=== PATIENT | female | born 1965 ===

== ENCOUNTER → 2018-11-08 21:05 | Outpatient (REF) | payer OTHER, SELFPAY ==
[2018-11-08 21:43] LABS: Alanine Aminotransferase 20 IU/L (9-52); Albumin 4.8 g/dL (3.5-5.0); Albumin Globulin Ratio 1.5 (1.0-2.8); Alkaline Phosphatase 50 U/L (38-126); Aspartate Aminotransferase 34 IU/L (14-36); BUN Creatinine Ratio 18.8 (6-22); Bilirubin Total 0.5 mg/dL (0.2-1.3); Blood Urea Nitrogen 15 mg/dL (7-17); Calcium 9.7 mg/dL (8.4-10.2); Carbon Dioxide 30 mmol/L (22-32); Chloride 97 mmol/L (98-107); Estimated Glomerular Filt Rate > 60.0 mL/min (>60); Globulin 3.2 g/dL (1.7-4.1); Glucose 92 mg/dL (70-100); HEMOLYSIS < 15 (0-50); Potassium 4.6 mmol/L (3.4-5.1); Sodium 137 mmol/L (137-145)
[2018-11-08 23:30] LABS: Free T3, Triiodothyronine Free 3.42 pg/mL (2.77-5.27); Free T4, Direct Thyroxine 1.11 ng/dL (0.78-2.19)
[2018-11-13 12:05] LABS: Testosterone, Total 9.3; Testosterone,Free 4.1
[2018-11-13 12:06] LABS: Sex Hormone Binding Globulin 125.1
[2018-11-13 15:48] LABS: Estrogen 509.6 pg/mL
== END ==
LOC: LAB 21:05
PROVIDERS: Visit Provider Naturopath
DX: E03.9 Hypothyroidism, unspecified (principal); F10.10 Alcohol abuse, uncomplicated; R53.83 Other fatigue; R63.5 Abnormal weight gain; R68.82 Decreased libido
CPT/HCPCS: 36415; 80053; 82672; 84144; 84270; 84402; 84403; 84439; 84443; 84481